=== PATIENT | male | born 1985 | race Caucasian/White ===

== ENCOUNTER 2017-07-15 12:14 | Inpatient (IN) | payer OTHER ==
[~2017-07-15] VITALS: Ht 167.6 cm; Wt 68.0 kg
[2017-07-15] MEDS ORDERED: IOHEXOL 350 MG/ML 10 ML VIAL (for RAD DIAG) IVCONTRAST ONE (12:15)
[2017-07-15] MEDS ORDERED: DIPHTH/TETANUS/ACEL PERTUSSIS (BOOSTER) 0.5 ML VIAL/PFS IM ONE (12:21)
[2017-07-15] MEDS ORDERED: ceFAZolin 2 GM PREMIX 50 ML ONE (12:21)
[2017-07-15 12:27] VITALS: O2SAT 99
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
[2017-07-15 12:38] LABS: AUTOMATED NEUTROPHIL # 3.9 TH/MM3 (1.8-7.7); BASOPHIL # 0.1 TH/MM3 (0-0.2); BASOPHIL % 0.8 % (0.0-2.0); EOSINOPHIL # 0.1 TH/MM3 (0-0.4); EOSINOPHIL % 1.9 % (0.0-4.0); HEMATOCRIT 41.2 % (39.0-51.0); HEMOGLOBIN 13.9 GM/DL (13.0-17.0); LYMPH % 35.5 % (9.0-44.0); LYMPHOCYTE # 2.7 TH/MM3 (1.0-4.8); MEAN CELL VOLUME 88.1 FL (80.0-100.0); MEAN CORPUSCULAR HEMOGLOBIN 29.7 PG (27.0-34.0); MEAN CORPUSCULAR HGB CONC 33.7 % (32.0-36.0); MEAN PLATELET VOLUME 8.2 FL (7.0-11.0); MONO % 10.1 % (0.0-8.0); MONOCYTE # 0.8 TH/MM3 (0-0.9); NEUT % 51.7 % (16.0-70.0); PLATELET COUNT 315 TH/MM3 (150-450); RED BLOOD COUNT 4.67 MIL/MM3 (4.50-5.90); WHITE BLOOD COUNT 7.6 TH/MM3 (4.0-11.0)
[2017-07-15 12:43] LABS: PROTHROMBIN TIME - PATIENT 10.2 SEC (9.8-11.6)
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
[2017-07-15] MEDS ORDERED: CHLORHEXIDINE GLUCONATE 2 % 1 PACK (2 CLOTHS) TOP PRN (13:00)
[2017-07-15] MEDS ORDERED: ONDANSETRON HCL 4 MG/2 ML VIAL IV PUSH PRN (13:00)
[2017-07-15] MEDS ORDERED: MISCELLANEOUS NURSING INFORMATION XX SCH (13:00)
[2017-07-15] MEDS ORDERED: ACETAMINOPHEN/HYDROcodone 325 MG/5 MG TAB PO PRN (13:00)
[2017-07-15] MEDS ORDERED: MAGNESIUM HYDROXIDE SUSP 30 ML CUP PO PRN (13:00)
[2017-07-15] MEDS ORDERED: SODIUM CHLORIDE 0.9% FLUSH 10 ML FLUSH IV FLUSH PRN (13:00)
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
[2017-07-15 14:38] VITALS: BP 132/69; PULSE 72; RESP 18; O2SAT 99
[2017-07-15 15:35] VITALS: BP_SYST 124; BP_SYST 134; BP_DIAS 64; PULSE 75; RESP 18; TEMP 97.9; O2SAT 99
[2017-07-15] MEDS: ACETAMINOPHEN/HYDROcodone 325 MG/5 MG TAB PO PRN ×2 (16:08→20:53)
[2017-07-15 19:07] VITALS: BP 113/57; PULSE 83; RESP 18; TEMP 97.6; O2SAT 99
[2017-07-15] MEDS ORDERED: DOCUSATE SODIUM 100 MG CAP PO SCH (21:00)
[2017-07-15 23:55] VITALS: BP 108/57; PULSE 67; RESP 18; TEMP 98.1; O2SAT 98
[2017-07-16] MEDS: ACETAMINOPHEN/HYDROcodone 325 MG/5 MG TAB PO PRN ×2 (01:09→06:21)
[2017-07-16] MEDS ORDERED: CHLORHEXIDINE GLUCONATE 2 % 1 PACK (2 CLOTHS) TOP SCH (04:00)
[2017-07-16 04:30] VITALS: BP 116/67; PULSE 76; RESP 17; TEMP 96.9; O2SAT 99
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
[2017-07-16 07:42] LABS: AUTOMATED NEUTROPHIL # 3.8 TH/MM3 (1.8-7.7); BASOPHIL # 0.1 TH/MM3 (0-0.2); BASOPHIL % 0.7 % (0.0-2.0); EOSINOPHIL # 0.2 TH/MM3 (0-0.4); EOSINOPHIL % 2.3 % (0.0-4.0); HEMATOCRIT 39.4 % (39.0-51.0); HEMOGLOBIN 13.2 GM/DL (13.0-17.0); LYMPH % 40.9 % (9.0-44.0); LYMPHOCYTE # 3.5 TH/MM3 (1.0-4.8); MEAN CELL VOLUME 87.7 FL (80.0-100.0); MEAN CORPUSCULAR HEMOGLOBIN 29.4 PG (27.0-34.0); MEAN CORPUSCULAR HGB CONC 33.5 % (32.0-36.0); MEAN PLATELET VOLUME 8.5 FL (7.0-11.0); MONO % 11.2 % (0.0-8.0); NEUT % 44.9 % (16.0-70.0); PLATELET COUNT 298 TH/MM3 (150-450); RED BLOOD COUNT 4.49 MIL/MM3 (4.50-5.90); RED CELL DISTRIBUTION WIDTH 14.1 % (11.6-17.2); WHITE BLOOD COUNT 8.6 TH/MM3 (4.0-11.0)
[2017-07-16 07:46] VITALS: BP 111/73; PULSE 53; RESP 18; TEMP 96.7; O2SAT 97
[2017-07-16 07:56] LABS: BICARBONATE 23.4 MEQ/L (21.0-32.0); CALCIUM 8.6 MG/DL (8.5-10.1); CREATININE 0.97 MG/DL (0.60-1.30)
[2017-07-16] MEDS ORDERED: TYLE325T PO (10:36)
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
== END 2017-07-16 11:30 | disposition home or self-care (01) | DRG 605 ==
LOC: NEPI 12:14 → NEDH 12:57 → EDBD 12:57 → N06A 15:51
PROVIDERS: ADMIT Surgery; ATTEND Surgery
DX: S21.112A Laceration without foreign body of left front wall of thorax without penetration into thoracic cavity, initial encounter (principal); J94.2 Hemothorax; W26.0XXA Contact with knife, initial encounter
CPT/HCPCS: 12001; 71045; 71260; 80048; 80307; 82435; 82565; 82947; 84132; 84295; 84520; 85025; 85610; 85730; 86850; 86900; 86901; 90471; 90715; 94150; 96374; 99291; G0390; J0690; Q9967